=== PATIENT | female | born 1990 | race Caucasian/White ===

== ENCOUNTER 2016-12-15 07:10 | Emergency (ER) | payer OTHER ==
[~2016-12-15] VITALS: Ht 162.6 cm; Wt 69.0 kg
[~2016-12-15 07:10] MED LIST: ACET50TA PO; DOCU10CA PO; FIOR1CAP PO; IBUP80TA PO; NUPE1OIN2 TOP; PRENTAB53 PO
[2016-12-15] MEDS ORDERED: SUMA4INJ3 IM (07:28)
[2016-12-15] MEDS ORDERED: FISH1000 PO (07:28)
[2016-12-15] MEDS ORDERED: VITA-122 PO (07:28)
[2016-12-15] MEDS ORDERED: PROM25TA PO (07:28)
[2016-12-15] MEDS ORDERED: VENL37.598 PO (07:28)
[2016-12-15] MEDS ORDERED: ASPI325T28 PO (07:28)
[2016-12-15] MEDS ORDERED: KETOROLAC 30 MG/ML VIAL (J1885) IV ONE (07:45)
[2016-12-15] MEDS ORDERED: ONDANSETRON 4MG/2ML VIAL (J2405) IV ONE (07:45)
[2016-12-15] MEDS ORDERED: NS 500 ML IV ONE (07:45)
[2016-12-15 09:23] VITALS: BP 94/57
== END 2016-12-15 09:30 | disposition home or self-care (01) ==
LOC: M ED 07:10
DX: G43.909 Migraine, unspecified, not intractable, without status migrainosus (principal); Z98.82 Breast implant status; Z79.82 Long term (current) use of aspirin; Z79.899 Other long term (current) drug therapy
CPT/HCPCS: 96374; 96375; 99283; J1885; J2405

== ENCOUNTER 2017-02-02 21:50 | Emergency (ER) | payer OTHER ==
[~2017-02-02] VITALS: Ht 160 cm; Wt 66.4 kg
[2017-02-02 21:50] VITALS: BP 101/72
[~2017-02-02 21:50] MED LIST changes: +ASPI325T28 PO; +FISH1000 PO; +PROM25TA PO; +SUMA4INJ3 IM; +VENL37.598 PO; +VITA-122 PO
[2017-02-02] MEDS ORDERED: KETOROLAC 60 MG/2 ML VIAL (J1885) IM ONE (23:15)
[2017-02-02] MEDS ORDERED: diphenhydrAMINE 50 MG CAP PO ONE (23:15)
[2017-02-02] MEDS ORDERED: METOCLOPRAMIDE 10 MG TAB PO ONE (23:15)
== END 2017-02-02 23:46 | disposition home or self-care (01) ==
LOC: M ED 21:50
DX: G43.909 Migraine, unspecified, not intractable, without status migrainosus (principal); F41.9 Anxiety disorder, unspecified; Z79.82 Long term (current) use of aspirin; Z79.899 Other long term (current) drug therapy
CPT/HCPCS: 96372; 99282; J1885

== ENCOUNTER 2017-02-10 23:55 | Emergency (ER) | payer OTHER ==
[~2017-02-10] VITALS: Ht 160 cm; Wt 63.6 kg
[2017-02-11 00:26] VITALS: BP 126/76
[2017-02-11] MEDS ORDERED: EFFE75CA75 PO (00:31)
[2017-02-11] MEDS ORDERED: KETOROLAC TROMETHAMINE 10 MG TAB PO ONE (02:30)
[2017-02-11] MEDS ORDERED: METOCLOPRAMIDE 10 MG TAB PO ONE (02:30)
== END 2017-02-11 02:57 | disposition home or self-care (01) ==
LOC: M ED 23:55
DX: G43.909 Migraine, unspecified, not intractable, without status migrainosus (principal); Z79.82 Long term (current) use of aspirin; Z79.899 Other long term (current) drug therapy

== ENCOUNTER 2017-02-21 20:21 | Emergency (ER) | payer OTHER ==
[~2017-02-21] VITALS: Ht 160 cm; Wt 63.6 kg
[~2017-02-21 20:21] MED LIST changes: +EFFE75CA75 PO
[2017-02-21] MEDS ORDERED: TRIMETHOBENZAMIDE HCL INJ 200 MG/2 ML VIAL (J3250) IM ONE (22:45)
[2017-02-21] MEDS ORDERED: KETOROLAC 30 MG/ML VIAL (J1885) IV ONE (22:45)
[2017-02-21] MEDS ORDERED: KETO10TAB PO (23:44)
[2017-02-21] MEDS ORDERED: NORCO 5/325MG TABLET (BULK FOR ED) PO ONE (23:45)
[2017-02-21 23:55] VITALS: BP 89/62
== END 2017-02-21 23:58 | disposition home or self-care (01) ==
LOC: M ED 20:21
DX: G43.909 Migraine, unspecified, not intractable, without status migrainosus (principal); Z79.82 Long term (current) use of aspirin; Z79.899 Other long term (current) drug therapy
CPT/HCPCS: 96372; 96374; 99283; J1885; J3250

== ENCOUNTER 2017-05-25 09:17 | Day surgery (SDC) | payer OTHER ==
[~2017-05-25] VITALS: Ht 160 cm; Wt 67.6 kg
[~2017-05-25 09:17] MED LIST changes: +CYMB1CAP4 PO; +HYDR50TA70 PO; +KETO10TAB PO; +PRAZ1CAP PO; +TIZA4CAP3 PO; +ZONI25CA2 PO
[2017-05-25] MEDS ORDERED: LR 1,000 ML IV ONE (09:45)
[2017-05-25 09:49] LABS: MEAN CORPUSCULAR HEMOGLOBIN 30.2 pg (27.0-33.0); MEAN CORPUSCULAR HGB CONC 32.6 g/dl (32.0-36.5); MEAN CORPUSCULAR VOLUME 92.7 fl (80.0-96.0); PLATELET COUNT, AUTOMATED 286 10^3/uL (150-450); WHITE BLOOD COUNT 4.8 10^3/uL (4.0-10.0)
[2017-05-25 10:09] LABS: CONTROL LINE HCG INT CTR LINE PRESENT
[2017-05-25] MEDS ORDERED: IODINE STRONG SOLN 15 ML BTL As Ordered ONE (10:25)
[2017-05-25] MEDS ORDERED: LIDOCAINE W/EPINEPHRINE 1% 20ML VIAL As Ordered ONE (10:26)
[2017-05-25] MEDS ORDERED: fentaNYL 100 MCG/2 ML INJECTION (J3010) As Ordered ONE (10:50)
[2017-05-25] MEDS ORDERED: MIDAZOLAM INJ 2 MG/2 ML VIAL (J2250) As Ordered ONE (10:50)
[2017-05-25] MEDS ORDERED: dexameTHASONE 4 MG/ML 1ML VIAL (J1100) As Ordered ONE (10:50)
[2017-05-25] MEDS ORDERED: ONDANSETRON 4MG/2ML VIAL (J2405) As Ordered ONE (10:50)
[2017-05-25] MEDS ORDERED: KETOROLAC 60 MG/2 ML VIAL (J1885) As Ordered ONE (10:55)
[2017-05-25] MEDS ORDERED: ePHEDrine SULFATE 25 MG/5 ML(5MG/ML) SYRINGE As Ordered ONE (10:55)
[2017-05-25] MEDS ORDERED: PHENYLephrine HCL 500 MCG/5 ML (100MCG/ML) SYRINGE (J2370) As Ordered ONE (10:55)
[2017-05-25] MEDS ORDERED: ONDANSETRON 4MG/2ML VIAL (J2405) IV PRN (11:45)
[2017-05-25] MEDS ORDERED: HYDROmorphone HCL 1 MG/ML SYRINGE (J1170) IV PRN (11:45)
[2017-05-25] MEDS ORDERED: fentaNYL 100 MCG/2 ML INJECTION (J3010) IV PRN (11:45)
[2017-05-25] MEDS ORDERED: MEPERIDINE INJ 25 MG/ML VIAL (J2175) IV PRN (11:45)
[2017-05-25] MEDS ORDERED: LR 1,000 ML IV SCH (11:45)
[2017-05-25] MEDS ORDERED: PERCOCET 5MG/325MG TAB PO PRN (11:45)
[2017-05-25 13:15] VITALS: BP 110/64
--- NOTE | 2017-05-26 07:52 | RO ---
DATE OF PROCEDURE: 05/25/2017 PREOPERATIVE DIAGNOSIS: High grade squamous intraepithelial lesion (HGSIL). POSTOPERATIVE DIAGNOSIS: High grade squamous intraepithelial lesion (HGSIL). OPERATION PERFORMED: Loop electrosurgical excision procedure (LEEP). SURGEON: Dr. Lynda Lassiter RELIGION INSTRUCTOR: None. CLINICAL SERVICE: Gynecology. ANESTHESIA: IV sedation, cervical block MATERIAL FORWARDED TO LABORATORY FOR EXAMINATION: 1. Superior LEEP. 2. Inferior LEEP. 3. Deep LEEP. DESCRIPTION OF FINDINGS: Lugol solution was placed on the cervix with a nonstaining central region. INFECTION CLASSIFICATION: 2. ESTIMATED BLOOD LOSS: 5 mL. URINE OUTPUT: Not measured. INTRAVENOUS (IV) FLUIDS: 800 mL lactated Ringers. INDICATION FOR OPERATION: Kimberly is a 26-year-old, (G) 2, para (P) 1-1-0-2, who had a history of high grade squamous intraepithelial lesion (HGSIL) for which she underwent LEEP in 2009 and she subsequently had normal Pap smears until she recently had a Pap smear that showed LGSIL/ASCUS - cannot exclude (HGSIL) with subsequent colposcopic biopsy showing HGSIL. I counseled her for a repeat LEEP procedure. She had a tubal ligation previously and desires no future childbearing. She noted to me that she had extremely high anxiety prior to her colposcopy procedure and I gave her a dose of Valium for that. She noted that with her previous LEEP procedure it was excruciatingly painful and she stated that she could "feel everything" during the procedure, so when I counseled her for repeat LEEP procedure, she strongly desired the procedure to occur in the operating room so that she could have sedation rather than undergo LEEP procedure in the clinic again. DESCRIPTION OF OPERATION: After obtaining informed consent, the patient was taken to the operating room where she underwent IV sedation. She was placed in low lithotomy position and the perineum and vagina were prepped and draped in routine fashion. A time out was performed to confirm patient name, date of , procedure, and indication. All parties were in agreement. Speculum was inserted into the vagina and Lugol solution was applied to the cervix. 10 mL of 1% lidocaine with epinephrine were injected for an intracervical block. LEEP was completed in two passes. The first pass created a superior and inferior specimen and then a deep LEEP was completed. Electrocautery was applied to the LEEP bed with complete hemostasis. Monsel solution was applied afterwards for continued prophylaxis against bleeding. The speculum was removed from the vagina. I placed a stitch at 12 o'clock on the superior LEEP specimen and at 6 o'clock on the inferior LEEP specimen to distinguish for pathology. The patient was awakened from sedation. She tolerated the procedure well. All counts were correct times two. The patient was transferred to the recovery room in good condition. TEVIN
== END 2017-05-25 13:20 | disposition home or self-care (01) ==
LOC: M SDC 09:17
PROVIDERS: ATTEND Obstetrics & Gynecology
DX: N87.1 Moderate cervical dysplasia (principal); R87.810 Cervical high risk human papillomavirus (HPV) DNA test positive; Z79.82 Long term (current) use of aspirin; Z79.899 Other long term (current) drug therapy; G43.909 Migraine, unspecified, not intractable, without status migrainosus
CPT/HCPCS: 36415; 57522; 84703; 85027; 86850; 86900; 86901; 88307; J1100; J1885; J2250; J2370; J2405; J3010